=== PATIENT | male | born 1980 | race African-American/Black ===

== ENCOUNTER 2019-09-18 16:16 | Emergency (ER) | payer SELFPAY ==
[~2019-09-18] VITALS: Ht 185.4 cm; Wt 109.0 kg
[~2019-09-18 16:16] MED LIST: FAMO-63 PO
[2019-09-18] MEDS ORDERED: fentaNYL PF VIAL 100 MCG/2 ML VIAL IVP ONE (17:00)
[2019-09-18] MEDS ORDERED: FAMOTIDINE 20 MG/2 ML VIAL IVP ONE (17:00)
[2019-09-18] MEDS ORDERED: ONDANSETRON PF 4 MG/2 ML VIAL. IVP ONE (17:00)
[2019-09-18] MEDS ORDERED: IV NORMAL SALINE 1000ML BAG 1,000 ML IV ONE (17:00)
[2019-09-18 17:30] LABS: BASO % 0 % (0-3); EOS % 0 % (0-3); HEMATOCRIT 42.7 % (39.0-53.0); HEMOGLOBIN 14.7 g/dL (13.0-17.5); LYMPH # 1.2 x10^3/uL (1.0-4.8); LYMPH % 10 % (24-48); MEAN CORPUSCULAR HEMOGLOBIN 28 pg (25-35); MEAN CORPUSCULAR HGB CONC 34 g/dL (31-37); MEAN CORPUSCULAR VOLUME 81 fL (79-100); MONO # 0.7 x10^3/uL (0.0-1.1); MONO % 6 % (0-9); NEUT % 84 % (31-73); PLATELET COUNT 167 x10^3/uL (140-400); RED BLOOD COUNT 5.29 x10^6/uL (4.30-5.70); RED CELL DISTRIBUTION WIDTH 13.1 % (11.5-14.5); WHITE BLOOD COUNT 11.9 x10^3/uL (4.0-11.0)
[2019-09-18 17:35] LABS: CALCIUM 9.2 mg/dL (8.5-10.1); CREATININE 1.2 mg/dL (0.7-1.3)
[2019-09-18 17:41] LABS: ALBUMIN 3.8 g/dL (3.4-5.0); ALBUMIN/GLOBULIN RATIO 1.1 (1.0-1.7); TOTAL BILIRUBIN 0.8 mg/dL (0.2-1.0); TOTAL PROTEIN 7.3 g/dL (6.4-8.2)
--- NOTE | 2019-09-18 17:41 | RAD ---
EXAM: CT Abdomen and Pelvis without IV contrast INDICATION: Reason: flank pain, n/v / Spl. Instructions: / History: TECHNIQUE: Multi-detector row CT images were acquired from the lung bases through the abdomen and pelvis without the use of IV contrast. Sagittal and coronal images were acquired from the transaxial data. All CT scans performed at this facility utilize dose optimization techniques as appropriate to the exam, including the following: Automated exposure control and adjustment of the mA and/or KV according to patient size (this includes techniques or standardized protocols for targeted exams where dose is indication/reason for exam). ORAL CONTRAST: None COMPARISON: None FINDINGS: The absence of IV contrast limits evaluation of soft tissue pathology. LOWER CHEST: Unremarkable LIVER: Unremarkable BILIARY SYSTEM: Gallbladder is unremarkable. Bile ducts are not dilated. PANCREAS: Unremarkable SPLEEN: Mildly enlarged spleen measuring 13.9 cm AP diameter. ADRENALS: Unremarkable KIDNEYS & URETERS: Normal left kidney. Right punctate nonobstructing nephrolithiasis is present at the inferior pole. There is marked, grade 3 right hydronephrosis with perirenal soft tissue stranding associated with marked right hydroureter (measuring approximately 2.3 cm in diameter). No right ureteral stone is however apparent. No soft tissue filling defect in the right ureter is seen either on noncontrast CT scan BLADDER: There is suggestion of asymmetric right lateral wall low density thickening. No perivesical soft tissue stranding, stones or otherwise obvious mass. REPRODUCTIVE ORGANS: Normal sized prostate gland. Seminal vesicles are unremarkable. There is a punctate calcification slightly right of midline in the low perineum (image 252 of axial series 3) that appears unlikely to represent a urethral stone but is of uncertain location. GASTROINTESTINAL: The stomach, small bowel, and colon are unremarkable. The appendix is normal. MESENTERY/PERITONEUM/RETROPERITONEUM: Unremarkable VASCULAR: Unremarkable LYMPH NODES: No adenopathy OSSEOUS & SOFT TISSUES: Unremarkable IMPRESSION: Severe right ureteral obstruction with grade 3 hydronephrosis and perirenal soft tissue stranding but no obstructing stone identified. Consider correlation with cystoscopy . Electronically signed by: Eugenia Arias MD (09/18/2019 5:39 PM) [id number]
--- NOTE | 2019-09-18 18:19 | PHYS DOC ---
Past Medical History Past Medical History: Asthma Past Surgical History: No Surgical History Smoking Status: Current Every Day Smoker Alcohol Use: Rarely Drug Use: None Social History Narrative: [facility] General Adult EDM: Chief Complaint: DIARRHEA HPI: HPI: Patient is a 39 year old man with no significant medical history who presents the ED today complaining of 10 out of 10 right flank pain radiating to the mid abdomen, symptoms began this morning when he woke up. Patient is also complaining of nausea and vomiting. He reports diarrhea yesterday. Patient den ies any hematemesis or melena. Denies any fever. Denies any hematuria. Denies any personal family history of kidney stones. Review of Systems: Review of Systems: Constitutional: Denies fever or chills. [] Eyes: Denies change in visual acuity. [] HENT: Denies nasal congestion or sore throat. [] Respiratory: Denies cough or shortness of breath. [] Cardiovascular: Denies chest pain or edema. [] GI: Denies abdominal pain, nausea, vomiting, bloody stools or diarrhea. [] : Reports right flank pain. Denies dysuria. [] Musculoskeletal: Denies back pain or joint pain. [] Integument: Denies rash. [] Neurologic: Denies headache, focal weakness or sensory changes. [] Psychiatric: Denies depression or anxiety. [] Heart Score: Risk Factors: Risk Factors: DM, Current or recent (<one month) smoker, HTN, HLP, family history of CAD, obesity. Risk Scores: Score 0 - 3: 2.5% MACE over next 6 weeks - Discharge Home Score 4 - 6: 20.3% MACE over next 6 weeks - Admit for Clinical Observation Score 7 - 10: 72.7% MACE over next 6 weeks - Early Invasive Strategies Current Medications: Current Medications Medications (Trade) Dose Ordered Sig/Mayi Start Time Stop Time Status Last Admin Dose Admin Famotidine (Pepcid Vial) 20 mg 1X ONCE 09/18/19 17:00 09/18/19 17:01 DC 09/18/19 17:33 20 MG Fentanyl Citrate (Fentanyl 2ml Vial) 50 mcg 1X ONCE 09/18/19 17:00 09/18/19 17:01 DC Ondansetron HCl (Zofran) 4 mg 1X ONCE 09/18/19 17:00 09/18/19 17:01 DC 09/18/19 17:15 4 MG Sodium Chloride 1,000 ml @ 1,000 mls/hr 1X ONCE 09/18/19 17:00 09/18/19 17:59 DC 09/18/19 17:31 1,000 MLS/HR Allergies: Allergies: Allergies Coded Allergies Type Severity Reaction Last Updated Verified No Known Drug Allergies 01/27/13 No Physical Exam: PE: Constitutional: Well developed, well nourished, no acute distress, non-toxic appearance. [] HENT: Normocephalic, atraumatic, bilateral external ears normal, oropharynx moist, no oral exudates, nose normal. [] Eyes: PERRLA, EOMI, conjunctiva normal, no discharge. [] Neck: Normal range of motion, no tenderness, supple, no stridor. [] Cardiovascular:Heart rate regular rhythm, no murmur [] Lungs & Thorax: Bilateral breath sounds clear to auscultation [] Abdomen: Bowel sounds normal, soft, no tenderness, no masses, no pulsatile masses. [] Skin: Warm, dry, no erythema, no rash. [] Back: No tenderness, mild right CVA tenderness. [] Extremities: No tenderness, no cyanosis, no clubbing, ROM intact, no edema. [] Neurologic: Alert and oriented X 3, normal motor function, normal sensory function, no focal deficits noted. [] Psychologic: Affect normal, judgement normal, mood normal. [] Current Patient Data: Labs: Laboratory Tests Test 09/18/19 17:13 White Blood Count 11.9 x10^3/uL (4.0-11.0) H Red Blood Count 5.29 x10^6/uL (4.30-5.70) Hemoglobin 14.7 g/dL (13.0-17.5) Hematocrit 42.7 % (39.0-53.0) Mean Corpuscular Volume 81 fL (79-100) Mean Corpuscular Hemoglobin 28 pg (25-35) Mean Corpuscular Hemoglobin Concent 34 g/dL (31-37) Red Cell Distribution Width 13.1 % (11.5-14.5) Platelet Count 167 x10^3/uL (140-400) Neutrophils (%) (Auto) 84 % (31-73) H Lymphocytes (%) (Auto) 10 % (24-48) L Monocytes (%) (Auto) 6 % (0-9) Eosinophils (%) (Auto) 0 % (0-3) Basophils (%) (Auto) 0 % (0-3) Neutrophils # (Auto) 10.0 x10^3/uL (1.8-7.7) H Lymphocytes # (Auto) 1.2 x10^3/uL (1.0-4.8) Monocytes # (Auto) 0.7 x10^3/uL (0.0-1.1) Eosinophils # (Auto) 0.0 x10^3/uL (0.0-0.7) Basophils # (Auto) 0.0 x10^3/uL (0.0-0.2) Sodium Level 139 mmol/L (136-145) Potassium Level 4.0 mmol/L (3.5-5.1) Chloride Level 103 mmol/L (98-107) Carbon Dioxide Level 30 mmol/L (21-32) Anion Gap 6 (6-14) Blood Urea Nitrogen 7 mg/dL (8-26) L Creatinine 1.2 mg/dL (0.7-1.3) Estimated GFR (Cockcroft-Gault) 82.0 BUN/Creatinine Ratio 6 (6-20) Glucose Level 201 mg/dL (70-99) H Calcium Level 9.2 mg/dL (8.5-10.1) Total Bilirubin 0.8 mg/dL (0.2-1.0) Aspartate Amino Transferase (AST) 13 U/L (15-37) L Alanine Aminotransferase (ALT) 27 U/L (16-63) Alkaline Phosphatase 63 U/L (46-116) Total Protein 7.3 g/dL (6.4-8.2) Albumin 3.8 g/dL (3.4-5.0) Albumin/Globulin Ratio 1.1 (1.0-1.7) Lipase 62 U/L (73-393) L Ethyl Alcohol Level < 10 mg/dL (0-10) Laboratory Tests 09/18/19 17:13 Laboratory Tests 09/18/19 17:13 Vital Signs: Vital Signs Date Time Temp Pulse Resp B/P (MAP) Pulse Ox O2 Delivery O2 Flow Rate FiO2 09/18/19 16:49 98.2 79 16 166/102 (123) 99 Room Air 98.2 EKG: EKG: [] Radiology/Procedures: Radiology/Procedures: []PROCEDURE: CT ABDOMEN PELVIS WO CONTRAST EXAM: CT Abdomen and Pelvis without IV contrast INDICATION: Reason: flank pain, n/v / Spl. Instructions: / History: TECHNIQUE: Multi-detector row CT images were acquired from the lung bases through the abdomen and pelvis without the use of IV contrast. Sagittal and coronal images were acquired from the transaxial data. All CT scans performed at this facility utilize dose optimization techniques as appropriate to the exam, including the following: Automated exposure control and adjustment of the mA and/or KV according to patient size (this includes techniques or standardized protocols for targeted exams where dose is indication/reason for exam). ORAL CONTRAST: None COMPARISON: None FINDINGS: The absence of IV contrast limits evaluation of soft tissue pathology. LOWER CHEST: Unremarkable LIVER: Unremarkable BILIARY SYSTEM: Gallbladder is unremarkable. Bile ducts are not dilated. PANCREAS: Unremarkable SPLEEN: Mildly enlarged spleen measuring 13.9 cm AP diameter. ADRENALS: Unremarkable KIDNEYS & URETERS: Normal left kidney. Right punctate nonobstructing nephrolithiasis is present at the inferior pole. There is marked, grade 3 right hydronephrosis with perirenal soft tissue stranding associated with marked right hydroureter (measuring approximately 2.3 cm in diameter). No right ureteral stone is however apparent. No soft tissue filling defect in the right ureter is seen either on noncontrast CT scan BLADDER: There is suggestion of asymmetric right lateral wall low density thickening. No perivesical soft tissue stranding, stones or otherwise obvious mass. REPRODUCTIVE ORGANS: Normal sized prostate gland. Seminal vesicles are unremarkable. There is a punctate calcification slightly right of midline in the low perineum (image 252 of axial series 3) that appears unlikely to represent a urethral stone but is of uncertain location. GASTROINTESTINAL: The stomach, small bowel, and colon are unremarkable. The appendix is normal. MESENTERY/PERITONEUM/RETROPERITONEUM: Unremarkable VASCULAR: Unremarkable LYMPH NODES: No adenopathy OSSEOUS & SOFT TISSUES: Unremarkable IMPRESSION: Severe right ureteral obstruction with grade 3 hydronephrosis and perirenal soft tissue stranding but no obstructing stone identified. Consider correlation with cystoscopy . Electronically signed by: Chet Arias MD (09/18/2019 5:39 PM) [id number] DICTATED and SIGNED BY: CHET ARIAS MD DATE: 09/18/19 1739 Course & Med Decision Making: Course & Med Decision Making Pertinent Labs and Imaging studies reviewed. (See chart for details) This is a 39-year-old male patient presenting to the ED today with right flank pain with nausea and vomiting, symptoms began this morning. Also had diarrhea yesterday. Patient is afebrile on arrival to the ED. CBC with a WBC of 11.9. CMP with glucose of 201, patient denies any previous history of diabetes-recommended to follow up with PCP. Urine analysis negative for infection or blood. Temperature is normal. Blood pressure 166/102 with no previous history of hypertension. Discussed the importance of following up with the PCP for blood pressure management. Patient has no chest pain no shortness of breath or headache. CT of the abdomen and pelvic severe right ureteral obstruction with grade 3 hydronephrosis and perirenal soft tissue stranding but no obstructing stone identified. Consider correlation with cystoscopy Also noted for right punctate nonobstructing nephrolithiasis Results were communicated with patient. We do not have a urologist at [facility]. Patient is stable. Recommended following up with the urologist as an outpati ent. Several hospitals with urology groups were discussed with patient. Virgilio Disclaimer: Virgilio Disclaimer: This electronic medical record was generated, in whole or in part, using a voice recognition dictation system. Departure Departure Impression: Primary Impression: Kidney stone Additional Impressions: Hydronephrosis, right Hypertension Qualified Codes: I10 - Essential (primary) hypertension Hyperglycemia Disposition: HOME, SELF-CARE Condition: STABLE Referrals: NO PCP (PCP) Please follow-up with the urologist of your choice as well as a primary care doctor Patient Instructions: Hydronephrosis, Hypertension, Kidney Stones, [id number] Additional Instructions: You were evaluated in the emergency room and noted to have obstruction of the right ureter as well as kidney stone in your right kidney. This needs to be followed up with a urologist of your choice. Please follow up with a primary care doctor as well because your blood pressure and blood glucose are high Scripts Ondansetron (ONDANSETRON ODT) 4 Mg Tab.rapdis 1 TAB PO PRN Q6-8HRS, #16 TAB Prov: AMANDEEPUNGARASHARD PLASTICATOR 09/18/19 Prochlorperazine Maleate (Compazine) 10 Mg Tablet 1 TAB PO Q6HRS, #20 TAB 0 Refills Prov: RASHARD SHEPPARD APRN 09/18/19 Tamsulosin Hcl (FLOMAX) 0.4 Mg Cap.er.24h 1 CAP PO DAILY, #7 CAP Prov: RASHARD SHEPPARD APRN 09/18/19 Justicifation of Admission Dx: Justifications for Admission: Justification of Admission Dx: N/A RASHARD SHEPPARD APRN Sep 18, 2019 18:19
[2019-09-18 18:46] LABS: BILIRUBIN,URINE NEGATIVE (NEG); CLARITY,URINE CLEAR; COLOR,URINE YELLOW; NITRITE,URINE NEGATIVE (NEG); PH,URINE 5.5 (<5.0-8.0); PROTEIN,URINE NEGATIVE (NEG-TRACE); UROBILINOGEN,URINE 0.2 mg/dL (0.2 mg/dL)
[2019-09-18 18:50] LABS: BACTERIA,URINE 0 /HPF (0-FEW); RBC,URINE 0 /HPF (0-2); WBC,URINE 0 /HPF (0-4)
[2019-09-18] MEDS ORDERED: KETOROLAC 30 MG/ML VIAL. IVP ONE (19:30)
[2019-09-18] MEDS ORDERED: TAMSULOSIN 0.4 MG CAP.ER.24H. PO ONE (19:30)
[2019-09-18] MEDS ORDERED: PROCHLORPERAZINE 10 MG/2 ML VIAL. IV ONE (19:30)
[2019-09-18 19:31] LABS: AMPHETAMINE/METHAMPHETAMINE NEG (NEG); BARBITURATES NEG (NEG); BENZODIAZEPINES NEG (NEG); CANNABINOIDS NEG (NEG); COCAINE NEG (NEG); METHADONE NEG (NEG); OPIATES NEG (NEG); PHENCYCLIDINE NEG (NEG)
[2019-09-18] MEDS ORDERED: PROC10TA57 PO (19:39)
[2019-09-18] MEDS ORDERED: TAMS0.4C97 PO (19:39)
[2019-09-18] MEDS ORDERED: ONDA4TAB12 PO (19:53)
[2019-09-18 20:00] VITALS: BP 171/70
[2019-09-18] MEDS ORDERED: ONDANSETRON ODT 4 MG TAB.RAPDIS. PO ONE (20:00)
== END 2019-09-18 20:03 | disposition home or self-care (01) ==
LOC: ER 16:16
DX: N13.1 Hydronephrosis with ureteral stricture, not elsewhere classified (principal); N20.0 Calculus of kidney; I10 Essential (primary) hypertension; R73.9 Hyperglycemia, unspecified; R11.2 Nausea with vomiting, unspecified; R19.7 Diarrhea, unspecified; J45.909 Unspecified asthma, uncomplicated; F17.200 Nicotine dependence, unspecified, uncomplicated
CPT/HCPCS: 36415; 74176; 80053; 80307; 81001; 83690; 85025; 96361; 96374; 96375; 99284; G0480; J0780; J1885; J2405; J3490; J7030